=== PATIENT | female | born 1940 | race Caucasian/White ===

== ENCOUNTER → 2023-03-13 | Outpatient (CLI) | payer MEDICARE | LOC: LAB 12:45 → LAB SHORT 12:45 | DX: R30.0 Dysuria (principal) | CPT/HCPCS: 87086 ==

== ENCOUNTER 2023-09-14 21:26 | Emergency (ER) | payer MEDICARE, OTHER ==
[~2023-09-14] VITALS: Ht 170.2 cm; Wt 86.2 kg
[2023-09-14] MEDS ORDERED: AMLO5 PO (22:11)
[2023-09-14] MEDS ORDERED: Amiodarone HCl200 MG PO (22:11)
[2023-09-14] MEDS ORDERED: Aspir 8181 MG PO (22:12)
[2023-09-14] MEDS ORDERED: HYDCHL25 PO (22:12)
[2023-09-14] MEDS ORDERED: ATOR10 PO (22:12)
[2023-09-14] MEDS ORDERED: ELIQUIS5 M2 PO (22:12)
[2023-09-14] MEDS ORDERED: LISI20 PO (22:13)
[2023-09-14] MEDS ORDERED: POTA10T PO (22:13)
[2023-09-14] MEDS ORDERED: OxyCODONE HCL 5 MG TAB PO ONE (22:45)
[2023-09-14 23:25] LABS: BASOPHILS ABSOLUTE AUTO 0.03 K/mm3 (0.00-0.23); BASOPHILS PERCENT AUTO 0 % (0-2); EOSINOPHILS ABSOLUTE AUTO 0.01 K/mm3 (0.00-0.68); EOSINOPHILS PERCENT AUTO 0 % (0-6); Hematocrit 41.2 % (33.0-51.0); Hemoglobin 13.5 g/dL (11.5-16.0); IMMATURE GRAN ABSOLUTE AUTO 0.05 K/mm3 (0.00-0.10); IMMATURE GRAN PERCENT AUTO 0 % (0-1); LYMPHOCYTES ABSOLUTE AUTO 1.37 K/mm3 (0.84-5.20); LYMPHOCYTES PERCENT AUTO 8 % (21-46); MONOCYTES PERCENT AUTO 5 % (4-13); Mean Corpuscular HGB 30.3 pg (26.0-34.0); Mean Corpuscular HGB Conc 32.8 g/dL (31.5-36.5); Mean Corpuscular Volume 92 fL (80-100); Mean Platelet Volume 11.5 fL (9.1-12.4); NEUTROPHILS ABSOLUTE AUTO 15.05 K/mm3 (1.96-9.15); NEUTROPHILS PERCENT AUTO 87 % (41-73); Platelet Count 193 K/mm3 (150-400); RDW Coefficient Variation 13.5 % (11.7-14.2); RDW Standard Deviation 46.1 fL (35.1-46.3); Red Blood Cell Count 4.46 M/mm3 (3.80-5.20); White Blood Cell Count 17.31 K/mm3 (4.00-11.30)
[2023-09-14 23:58] LABS: Thyroid Stimulating Hormone 2.39 uIU/mL (0.360-4.800)
[2023-09-14 23:59] LABS: Albumin, Blood 3.8 g/dL (3.4-5.0); Bilirubin, Total 0.7 mg/dL (0.1-1.0); Bun/Creatinine Ratio 20.1 (12.0-20.0); Calcium, Blood 9.5 mg/dL (8.5-10.1); Creatinine, Blood 1.94 mg/dL (0.40-1.00); Globulin, Blood 3.9 g/dL (2.2-4.0); Phosphorus, Blood 3.1 mg/dL (2.5-4.9); Potassium, Blood 3.8 mmol/L (3.5-5.5); Total Protein, Blood 7.7 g/dL (6.4-8.2)
[2023-09-15 00:10] LABS: Influenza A, PCR NEGATIVE (NEGATIVE); Influenza B, PCR NEGATIVE (NEGATIVE); Resp Syncytial Virus, PCR NEGATIVE (NEGATIVE); SARS-Cov-2 (COVID-19) PCR, MMC NEGATIVE (NEGATIVE)
[2023-09-15] MEDS ORDERED: NS 1,000 ML IV SCH (01:50)
[2023-09-15] MEDS ORDERED: Acetaminophen 500 MG Tab PO ONE (01:50)
[2023-09-15] MEDS ORDERED: OxyCODONE HCL 5 MG TAB PO ONE (01:50)
[2023-09-15] MEDS ORDERED: Ketorolac Tromethamine 30mg Vial IV ONE (01:50)
[2023-09-15 02:00] LABS: Source, Urine Clean Catch
[2023-09-15 02:08] LABS: Bilirubin, Urine Neg (Neg); Blood, Urine 1+ (Neg); Glucose Qualitative, Urine 2+ (Neg); Ketones, Urine 1+ (Neg); Leukocyte Esterase, Urine 3+ (Neg); Nitrite, Urine Neg (Neg); Protein, Urine 2+ (Neg); Specific Gravity, Urine 1.025 (1.003-1.022); Urobilinogen, Urine 1+ (Normal)
[2023-09-15 02:24] LABS: Appearance, Urine Hazy (Clear); Color, Urine Yellow (P-Yellow)
[2023-09-15 02:25] LABS: Amorphous Light (0-Heavy); Bacteria Mod /hpf; Red Blood Cells, Urine 0-2 /hpf (0-2); Squamous Epithelial Cells Few /hpf (Few); White Blood Cells, Urine 25-50 /hpf (0-5)
[2023-09-15 02:26] LABS: Calcium Oxalate Crystals Mod /hpf
[2023-09-15] MEDS ORDERED: CefTRIAXone Sodium 1,000 MG in NS 50 ML IV ONE (02:35)
[2023-09-15] MEDS ORDERED: CEPH500 PO (02:36)
[2023-09-15] MEDS ORDERED: Ibuprofen600 MG PO (02:39)
[2023-09-15] MEDS ORDERED: ACET500 PO (02:39)
[2023-09-15] MEDS ORDERED: RX Prepack 6 Tabs Oxycodone 5mg UD ONE (02:40)
[2023-09-15] MEDS ORDERED: Ibuprofen 600 MG Tab PO ONE (02:40)
[2023-09-15 03:30] VITALS: BP 128/61
== END 2023-09-15 03:30 | disposition home or self-care (01) ==
LOC: ER 21:26
PROVIDERS: Emergency Medicine
DX: S42.201A Unspecified fracture of upper end of right humerus, initial encounter for closed fracture (principal); N39.0 Urinary tract infection, site not specified; E86.0 Dehydration; I10 Essential (primary) hypertension; Z79.82 Long term (current) use of aspirin; Z79.01 Long term (current) use of anticoagulants; Z79.899 Other long term (current) drug therapy; Z88.2 Allergy status to sulfonamides; W18.39XA Other fall on same level, initial encounter; Y93.01 Activity, walking, marching and hiking
CPT/HCPCS: 0241U; 71045; 73030; 73562-RT; 80053; 81001; 83605; 83735; 84100; 84443; 84484; 85025; 93005; 93010; 96361; 96361-59; 96365; 96365-59; 96374; 96375; 96375-59; 96376; 99284-25; A9270; J0696; J1885; J7030

== ENCOUNTER 2023-09-22 19:54 | Emergency (ER) | payer MEDICARE, OTHER ==
[~2023-09-22] VITALS: Ht 167.6 cm; Wt 74.8 kg
[~2023-09-22 19:54] MED LIST: ACET500 PO; AMLO5 PO; ATOR10 PO; Amiodarone HCl200 MG PO; Aspir 8181 MG PO; CEPH500 PO; ELIQUIS5 M2 PO; HYDCHL25 PO; Ibuprofen600 MG PO; LISI20 PO; POTA10T PO
[2023-09-22] MEDS ORDERED: Glycerin Adult Supp 1 EA PR ONE (21:40)
[2023-09-22] MEDS ORDERED: Polyethylene Glycol 3350 17 gm PO ONE (21:40)
[2023-09-22] MEDS ORDERED: Bisacodyl 5 MG TabEC PO ONE (21:40)
[2023-09-22] MEDS ORDERED: MIRALAX17 GM PO (21:43)
[2023-09-22] MEDS ORDERED: [UNRECOGNIZED DRUG - OTHER] PO (21:43)
[2023-09-22 23:11] VITALS: BP 93/47
== END 2023-09-22 23:11 | disposition home or self-care (01) ==
LOC: ER 19:54
DX: K59.00 Constipation, unspecified (principal); Z88.2 Allergy status to sulfonamides; Z79.899 Other long term (current) drug therapy; Z79.82 Long term (current) use of aspirin; I10 Essential (primary) hypertension
CPT/HCPCS: 99283; A9270

== ENCOUNTER → 2024-02-05 | Outpatient (CLI) | payer MEDICARE, OTHER ==
[~2024-02-05] MED LIST changes: +BISA5EC PO; +Bentyl20 MG PO; +FUROSEMIDE20 MG PO; +METO5A PO; +MIRALAX17 GM PO; +ONDA4 PO; +PROAIR DIGIHAL90 MCG INH; +Pyridium100 MG PO; +[UNRECOGNIZED DRUG - OTHER] PO
[2024-02-05 14:08] LABS: Appearance, Urine Clear (Clear); Bilirubin, Urine Neg (Neg); Blood, Urine Neg (Neg); Color, Urine Yellow (P-Yellow); Glucose Qualitative, Urine Neg (Neg); Ketones, Urine Neg (Neg); Leukocyte Esterase, Urine Neg (Neg); Nitrite, Urine Neg (Neg); Protein, Urine Neg (Neg); Specific Gravity, Urine 1.015 (1.003-1.022); Urobilinogen, Urine 1+ (Normal)
== END | disposition home or self-care (01) ==
LOC: LAB 13:50 → LAB SHORT 13:50
PROVIDERS: Family Medicine
DX: N39.0 Urinary tract infection, site not specified (principal)
CPT/HCPCS: 81003; 87086

== ENCOUNTER → 2024-05-01 | Outpatient (CLI) | payer MEDICARE, OTHER | LOC: LAB SHORT 19:01 → LAB 19:01 | DX: R31.9 Hematuria, unspecified (principal) | CPT/HCPCS: 87086 ==